=== PATIENT | female | born 1970 | race Caucasian/White ===

== ENCOUNTER 2016-11-02 04:05 | Emergency (ER) | payer OTHER ==
[~2016-11-02] VITALS: Ht 160 cm; Wt 90.0 kg
[~2016-11-02 04:05] MED LIST: ALBU8I INH; CITA10TA4 PO; PRED20 PO; ZOFR4TAB3 PO
[2016-11-02 04:13] VITALS: BP 154/92; PULSE 88; RESP 16; TEMP 98.2; O2SAT 99
[2016-11-02] MEDS ORDERED: KETOROLAC TROMETHAMINE 30 MG/ML (IVP) VIAL IV PUSH ONE (04:45)
[2016-11-02] MEDS ORDERED: PANTOPRAZOLE SODIUM 40 MG VIAL IV PUSH ONE (04:45)
[2016-11-02] MEDS ORDERED: ONDANSETRON HCL 4 MG/2 ML VIAL IV PUSH ONE (04:45)
[2016-11-02] MEDS ORDERED: SODIUM CHLOR 0.9% 1000 ML INJ 1,000 ML IV ONE (04:45)
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
[2016-11-02 05:14] LABS: AUTOMATED NEUTROPHIL # 5.7 TH/MM3 (1.8-7.7); BASOPHIL % 0.4 % (0.0-2.0); EOSINOPHIL % 0.3 % (0.0-4.0); HEMATOCRIT 45.8 % (35.0-46.0); HEMO FLAGS DIFF FINAL; LYMPH % 24.8 % (9.0-44.0); MEAN CORPUSCULAR HEMOGLOBIN 29.8 PG (27.0-34.0); MEAN CORPUSCULAR HGB CONC 33.4 % (32.0-36.0); MONO % 4.7 % (0.0-8.0); NEUT % 69.8 % (16.0-70.0); PLATELET COUNT 227 TH/MM3 (150-450); RED BLOOD COUNT 5.15 MIL/MM3 (4.00-5.30); RED CELL DISTRIBUTION WIDTH 13.2 % (11.6-17.2); WHITE BLOOD COUNT 8.2 TH/MM3 (4.0-11.0)
[2016-11-02 05:30] VITALS: BP 158/99; PULSE 97; RESP 18; O2SAT 95
[2016-11-02 05:55] LABS: ALKALINE PHOSPHATASE 94 U/L (45-117); TOTAL BILIRUBIN ADULT 0.2 MG/DL (0.2-1.0)
[2016-11-02 05:57] LABS: ALT (GPT) 23 U/L (10-53); ANION GAP 10 MEQ/L (5-15); AST (GOT) 24 U/L (15-37); BLOOD UREA NITROGEN 5 MG/DL (7-18); CHLORIDE 107 MEQ/L (98-107); GLOMERULAR FILTRATION RATE 93 ML/MIN (>89); POTASSIUM 3.6 MEQ/L (3.5-5.1); SODIUM (NA) 141 MEQ/L (136-145)
[2016-11-02 06:33] VITALS: BP 172/79; PULSE 87; RESP 18; O2SAT 94
[2016-11-02 08:00] VITALS: BP 155/71; PULSE 85; RESP 17; O2SAT 97
[2016-11-02 10:16] VITALS: BP 138/71
== END 2016-11-02 10:17 | disposition home or self-care (01) ==
LOC: NEPC 04:05
DX: F10.120 Alcohol abuse with intoxication, uncomplicated (principal); J45.909 Unspecified asthma, uncomplicated; R11.2 Nausea with vomiting, unspecified; F17.210 Nicotine dependence, cigarettes, uncomplicated; F12.90 Cannabis use, unspecified, uncomplicated
CPT/HCPCS: 80053; 80307; 84703; 85025; 96361; 96374; 96375; 99284; C9113; J1885; J2405; J7030

== ENCOUNTER 2017-11-14 18:26 | Emergency (ER) | payer OTHER ==
[~2017-11-14] VITALS: Ht 160 cm; Wt 87.0 kg
[2017-11-14 18:38] VITALS: BP 176/92; PULSE 92; RESP 22; O2SAT 99
[2017-11-14] MEDS ORDERED: CITA10TA4 PO (18:43)
[2017-11-14 18:44] VITALS: O2SAT 97
[2017-11-14] MEDS ORDERED: SODIUM CHLORID 0.9% 500 ML INJ 500 ML IV ONE (18:45)
[2017-11-14] MEDS ORDERED: ASPIRIN 81 MG CHEW TAB PO ONE (18:45)
[2017-11-14] MEDS ORDERED: SODIUM CHLORIDE 0.9% FLUSH 10 ML FLUSH IVF PRN (18:45)
[2017-11-14 19:16] LABS: AUTOMATED NEUTROPHIL # 4.2 TH/MM3 (1.8-7.7); BASOPHIL # 0.1 TH/MM3 (0-0.2); BASOPHIL % 0.9 % (0.0-2.0); EOSINOPHIL # 0.1 TH/MM3 (0-0.4); EOSINOPHIL % 1.5 % (0.0-4.0); HEMATOCRIT 44.9 % (35.0-46.0); HEMOGLOBIN 15.5 GM/DL (11.6-15.3); LYMPHOCYTE # 4.2 TH/MM3 (1.0-4.8); MEAN CELL VOLUME 87.3 FL (80.0-100.0); MEAN CORPUSCULAR HEMOGLOBIN 30.1 PG (27.0-34.0); MEAN CORPUSCULAR HGB CONC 34.4 % (32.0-36.0); MEAN PLATELET VOLUME 8.8 FL (7.0-11.0); MONO % 7.4 % (0.0-8.0); MONOCYTE # 0.7 TH/MM3 (0-0.9); NEUT % 45.2 % (16.0-70.0); PLATELET COUNT 256 TH/MM3 (150-450); RED BLOOD COUNT 5.14 MIL/MM3 (4.00-5.30); RED CELL DISTRIBUTION WIDTH 13.9 % (11.6-17.2); WHITE BLOOD COUNT 9.3 TH/MM3 (4.0-11.0)
[2017-11-14 19:24] LABS: INTERNATIONAL NORMALIZED RATIO 1.1 RATIO; PROTHROMBIN TIME - PATIENT 10.8 SEC (9.8-11.6)
[2017-11-14 19:30] LABS: ALT (GPT) 18 U/L (10-53)
--- NOTE | 2017-11-14 19:31 | RADRPT ---
EXAM DATE: 11/14/2017 7:27 PM EDT AGE/SEX: 47 years / Female INDICATIONS: Right sided chest pain for 3 days. CLINICAL DATA: This is the patient's initial encounter. Patient reports that signs and symptoms have been present for 3 days and indicates a pain score of 8/10. MEDICAL/SURGICAL HISTORY: None. Hysterectomy. COMPARISON: No prior [place] exams available for comparison. FINDINGS: PA and lateral views of the chest demonstrate the lungs to be symmetrically aerated. There is some in distinctness of the central bronchopulmonary markings and suggestive of mild peribronchial thickening in both frontal and lateral views. Both costophrenic angles are well delineated and there is no evid ence of pneumothorax or pleural effusion. Both hemidiaphragms well delineated. The heart is normal si ze. CONCLUSION: 1. Nonconsolidative perihilar infiltrates bilaterally. 2. No evidence of pneumothorax or pleural effusion. Electronically signed by: Noble Conklin MD 11/14/2017 7:29 PM EDT
--- NOTE | 2017-11-14 19:32 | PD ---
HPI Chief Complaint: Chest Pain Time Seen by Provider: 19:11 Travel History International Travel<30 days: No Contact w/Intl Traveler<30days: No Traveled to known affect area: No History of Present Illness HPI Patient is a 47-year-old female who at 5:00 today said she vomited developed upper back pain she has upper chest pain in the right side that radiates to the back she put icy hot patch on her back without relief comes to the ER complaining of constant pain radiating from the right scapular area through to the back denies any left-sided squeezing pressure no arm radiation on the left she has no history of hypertension no history of diabetes no never had a stress test pain is constant radiating to the back. PFSH Past Medical History Hx Anticoagulant Therapy: No Asthma: Yes Depression: Yes Cancer: Yes (CERVICAL) Cardiovascular Problems: No Chemotherapy: No Cerebrovascular Accident: No Diabetes: No Diminished Hearing: No Glaucoma: No Hepatitis: No Hiatal Hernia: No Hypertension: No Musculoskeletal: Yes Neurologic: No Respiratory: No Thyroid Disease: No ?: Not Menopausal: No : 4 Para: 2 Miscarriage: 1 : 1 Past Surgical History Hysterectomy: Yes Other Surgery: Yes (EXCISION MASS LEFT FOOT) Social History Alcohol Use: Yes (OCCASION, PREV HEAVY DRINKER) Tobacco Use: Yes ( 1 1/2 TO 2 PPD) Substance Use: Yes (MARIJUANA DAILY) Allergies-Medications (Allergen,Severity, Reaction): Coded Allergies: shellfish derived (Unverified Allergy, Intermediate, 11/14/17) acetaminophen (Unverified Adverse Reaction, Severe, abd pain, 11/14/17) hydrocodone (Unverified Adverse Reaction, Severe, abd pain, 11/14/17) Reported Meds & Prescriptions Reported Meds & Active Scripts Active Reported Citalopram (Citalopram Hydrobromide) 10 Mg Tab 10 Mg PO DAILY Review of Systems Except as stated in HPI: all other systems reviewed are Neg Cardiovascular: Positive: Chest Pain or Discomfort (Upper mid back pain) Physical Exam Narrative GENERAL: No acute distress no respiratory distress and in no apparent pain SKIN: Warm and dry. HEAD: Atraumatic. Normocephalic. EYES: Pupils equal and round. No scleral icterus. No injection or drainage. ENT: No nasal bleeding or discharge. Mucous membranes pink and moist. NECK: Trachea midline. No JVD. CARDIOVASCULAR: Regular rate and rhythm. RESPIRATORY: No accessory muscle use. Clear to auscultation. Breath sounds equal bilaterally. GASTROINTESTINAL: Abdomen soft, non-tender, nondistended. Hepatic and splenic margins not palpable. MUSCULOSKELETAL: Extremities without clubbing, cyanosis, or edema. No obvious deformities. NEUROLOGICAL: Awake and alert. No obvious cranial nerve deficits. Motor grossly within normal limits. Five out of 5 muscle strength in the arms and legs. Normal speech. PSYCHIATRIC: Appropriate mood and affect; insight and judgment normal. Data Data Last Documented VS Vital Signs Date Time Temp Pulse Resp B/P (MAP) Pulse Ox O2 Delivery O2 Flow Rate FiO2 11/14/17 18:44 97 Nasal Cannula 11/14/17 18:44 2.00 11/14/17 18:38 92 22 176/92 (120) Orders Orders Electrocardiogram (11/14/17 18:41) Ckmb (Isoenzyme) Profile (11/14/17 18:41) Complete Blood Count With Diff (11/14/17 18:41) Comprehensive Metabolic Panel (11/14/17 18:41) Magnesium (Mg) (11/14/17 18:41) Prothrombin Time / Inr (Pt) (11/14/17 18:41) Act Partial Throm Time (Ptt) (11/14/17 18:41) Troponin I (11/14/17 18:41) Lipase (11/14/17 18:41) Ecg Monitoring (11/14/17 18:41) Bilateral Bp Monitoring (11/14/17 18:41) Iv Access Insert/Monitor (11/14/17 18:41) Oximetry (11/14/17 18:41) Oxygen Administration (11/14/17 18:41) Aspirin Chew (Aspirin Chew) (11/14/17 18:45) Sodium Chloride 0.9% Flush (Ns Flush) (11/14/17 18:45) Sodium Chlorid 0.9% 500 Ml Inj (Ns 500 M (11/14/17 18:45) Chest, Pa & Lat (11/14/17 18:41) Al-Mag Hy-Si 40-40-4 Mg/Ml Liq (Mag-Al P (11/14/17 19:45) Lidocaine 2% Viscous (Xylocaine 2% Visco (11/14/17 19:45) Famotidine Inj (Pepcid Inj) (11/14/17 19:45) CKMB (11/14/17 18:55) CKMB% (11/14/17 18:55) Ketorolac Inj (Toradol Inj) (11/14/17 21:30) Sodium Chlor 0.9% 1000 Ml Inj (Ns 1000 M (11/14/17 21:30) Azithromycin (Zithromax) (11/14/17 21:30) Ipratropium Neb (Atrovent Neb) (11/14/17 21:30) Labs Laboratory Tests Test 11/14/17 18:55 White Blood Count 9.3 TH/MM3 Red Blood Count 5.14 MIL/MM3 Hemoglobin 15.5 GM/DL Hematocrit 44.9 % Mean Corpuscular Volume 87.3 FL Mean Corpuscular Hemoglobin 30.1 PG Mean Corpuscular Hemoglobin Concent 34.4 % Red Cell Distribution Width 13.9 % Platelet Count 256 TH/MM3 Mean Platelet Volume 8.8 FL Neutrophils (%) (Auto) 45.2 % Lymphocytes (%) (Auto) 45.0 % Monocytes (%) (Auto) 7.4 % Eosinophils (%) (Auto) 1.5 % Basophils (%) (Auto) 0.9 % Neutrophils # (Auto) 4.2 TH/MM3 Lymphocytes # (Auto) 4.2 TH/MM3 Monocytes # (Auto) 0.7 TH/MM3 Eosinophils # (Auto) 0.1 TH/MM3 Basophils # (Auto) 0.1 TH/MM3 CBC Comment DIFF FINAL Differential Comment Prothrombin Time 10.8 SEC Prothromb Time International Ratio 1.1 RATIO Activated Partial Thromboplast Time 32.4 SEC Blood Urea Nitrogen 8 MG/DL Creatinine 0.81 MG/DL Random Glucose 80 MG/DL Total Protein 7.5 GM/DL Albumin 3.8 GM/DL Calcium Level 8.7 MG/DL Magnesium Level 2.2 MG/DL Alkaline Phosphatase 85 U/L Aspartate Amino Transf (AST/SGOT) 17 U/L Alanine Aminotransferase (ALT/SGPT) 18 U/L Total Bilirubin 0.3 MG/DL Sodium Level 140 MEQ/L Potassium Level 3.6 MEQ/L Chloride Level 107 MEQ/L Carbon Dioxide Level 24.9 MEQ/L Anion Gap 8 MEQ/L Estimat Glomerular Filtration Rate 75 ML/MIN Total Creatine Kinase 115 U/L Creatine Kinase MB 1.5 NG/ML Troponin I LESS THAN 0.02 NG/ML Lipase 92 U/L [facility] Medical Decision Making Medical Screen Exam Complete: Yes Emergency Medical Condition: Yes Interpretation(s) EKG is normal sinus rhythm with a rate of 91 Differential Diagnosis Costochondritis versus GERD versus gastritis versus cholecystitis versus pneumonia pneumothorax or intercostal muscle pain or pulled muscle spasm back muscle Narrative Course Pepcid IV Maalox viscous lidocaine given patient felt relief from the GI cocktail viscous lidocaine Maalox feels better and then Chest xray is read as PNA and I treat with azithromycin and Duo neb pt improved safe for outpt follow up Diagnosis Primary Impression: Atypical chest pain Additional Impressions: GERD (gastroesophageal reflux disease) Qualified Codes: K21.9 - Gastro-esophageal reflux disease without esophagitis PNA (pneumonia) Patient Instructions: Community Acquired Pneumonia (ED), Gastritis (ED), General Instructions Scripts Omeprazole (Omeprazole) 40 Mg Cap 40 MG PO DAILY, #14 CAP 0 Refills Prov: Cirilo Sierra MD 11/14/17 Famotidine (Pepcid) 20 Mg Tab 20 MG PO BID, #20 TAB 0 Refills Prov: Cirilo Sierra MD 11/14/17 Ipratropium HFA 12.9 GM Inh (Atrovent HFA 12.9 GM Inh) 17 Mcg/Actuation Aer 2 PUFF INH Q6HR Y for SHORTNESS OF BREATH, #1 INHALER 0 Refills Prov: Cirilo Sierra MD 11/14/17 Azithromycin (Azithromycin) 250 Mg Tab 250 MG PO DIRECTED for Infection, #6 TAB 0 Refills Take 2 tabs (500 mg) on day 1 then 1 tab daily x 4 days. Prov: Cirilo Sierra MD 11/14/17 Ciprofloxacin (Cipro) 500 Mg Tab 500 MG PO BID for Infection, #7 TAB 0 Refills Prov: Cirilo Sierra MD 11/14/17 Disposition: 01 DISCHARGE HOME Condition: Good Cirilo Sierra MD November 14, 2017 19:32
[2017-11-14 19:35] LABS: ALKALINE PHOSPHATASE 85 U/L (45-117); TOTAL BILIRUBIN ADULT 0.3 MG/DL (0.2-1.0); TOTAL PROTEIN 7.5 GM/DL (6.4-8.2); TROPONIN I LESS THAN 0.02 NG/ML (0.02-0.05)
[2017-11-14 19:45] LABS: ALBUMIN 3.8 GM/DL (3.4-5.0); AST (GOT) 17 U/L (15-37); BICARBONATE 24.9 MEQ/L (21.0-32.0); BLOOD UREA NITROGEN 8 MG/DL (7-18); CALCIUM 8.7 MG/DL (8.5-10.1); CHLORIDE 107 MEQ/L (98-107); CREATININE 0.81 MG/DL (0.50-1.00); GLOMERULAR FILTRATION RATE 75 ML/MIN (>89); GLUCOSE,RANDOM 80 MG/DL (74-106); MAGNESIUM 2.2 MG/DL (1.5-2.5); SODIUM (NA) 140 MEQ/L (136-145)
[2017-11-14] MEDS ORDERED: ALUMINUM/MAGNESIUM/SIMETH 30 ML CUP PO ONE (19:45)
[2017-11-14] MEDS ORDERED: LIDOCAINE VISCOUS 2% SOLN 15 ML UDC SWISH-SPIT ONE (19:45)
[2017-11-14] MEDS ORDERED: FAMOTIDINE 20 MG/2 ML VIAL IV PUSH SCH (19:45)
[2017-11-14] MEDS ORDERED: AZITHROMYCIN 250 MG TAB PO ONE (21:30)
[2017-11-14] MEDS ORDERED: SODIUM CHLOR 0.9% 1000 ML INJ 1,000 ML IV ONE (21:30)
[2017-11-14] MEDS ORDERED: KETOROLAC TROMETHAMINE 30 MG/ML (IVP) VIAL IV PUSH ONE (21:30)
[2017-11-14] MEDS ORDERED: RESP: IPRATROPIUM 0.5 MG/2.5 ML NEB NEB ONE (21:30)
[2017-11-14] MEDS ORDERED: AZIT250T3 PO (22:21)
[2017-11-14] MEDS ORDERED: CIPR-9 PO (22:21)
[2017-11-14] MEDS ORDERED: OMEP40CA2 PO (22:22)
[2017-11-14] MEDS ORDERED: IPRA17I INH (22:22)
[2017-11-14] MEDS ORDERED: FAMO1TAB37 PO (22:22)
--- NOTE | 2017-11-15 15:36 | EKG ---
Date Performed: 11/14/2017 Time Performed: 18:36:43 PTAGE: 47 years EKG: Sinus rhythm MODERATE ST DEPRESSION ABNORMAL ECG NO PREVIOUS TRACING DOCTOR: Kvng Cheema Interpretating Date/Time 11/15/2017 15:34:55
== END 2017-11-14 22:51 | disposition home or self-care (01) ==
LOC: NEPE 18:26
DX: R07.89 Other chest pain (principal); K21.9 Gastro-esophageal reflux disease without esophagitis; F12.90 Cannabis use, unspecified, uncomplicated; F17.200 Nicotine dependence, unspecified, uncomplicated; F32.9 Major depressive disorder, single episode, unspecified; Z79.899 Other long term (current) drug therapy
CPT/HCPCS: 71046; 80053; 82550; 82552; 83690; 83735; 84484; 85025; 85610; 85730; 93005; 94664; 96361; 96374; 96375; 99285; J1885; J7030; J7040; J7644

== ENCOUNTER 2017-11-27 22:30 | Inpatient (IN) | payer OTHER ==
[~2017-11-27 22:30] MED LIST changes: -ALBU8I INH; +AMIO200T PO; +ASPI81 PO; +ATOR40TA16 PO; +AZIT250T3 PO; +BRIL90TA PO; +CEFU1TAB18 PO; +CIPR-9 PO; +CIPR500T2 PO; +CITA20TA4 PO; +FAMO1TAB37 PO; +FURO20TA PO; +IPRA17I INH; +LISI-519 PO; +METO25TA3 PO; +OMEP40CA2; +OMEP40CA2 PO; -PRED20 PO; +WALKER WHEELS/F1 MIS; -ZOFR4TAB3 PO
[2017-11-27 22:38] VITALS: BP 101/71; PULSE 107; RESP 20; TEMP 98.3; O2SAT 100
[2017-11-27] MEDS ORDERED: SODIUM CHLORIDE 0.9% FLUSH 10 ML FLUSH IV FLUSH PRN (23:15)
[2017-11-27] MEDS ORDERED: METOPROLOL TARTRATE 5 MG/5 ML VIAL IV PUSH ONE (23:15)
[2017-11-27] MEDS ORDERED: ACETAMINOPHEN 325 MG TAB PO PRN (23:15)
[2017-11-27] MEDS ORDERED: NALOXONE HCL 0.4 MG/ML AMP IV PUSH PRN (23:15)
[2017-11-27] MEDS: MORPHINE SULFATE 4 MG/ML INJ IV PUSH PRN (23:27)
[2017-11-27] MEDS ORDERED: IOHEXOL 350 MG/ML 10 ML VIAL (for RAD DIAG) IVCONTRAST ONE (23:55)
[2017-11-28] VITALS (19 sets, daily range): BP systolic 109–135; BP diastolic 60–74; PULSE 83–104; RESP 18–20; TEMP 98–98.8; O2SAT 97–98
--- NOTE | 2017-11-28 00:16 | RADRPT ---
EXAM DATE: 11/27/2017 11:56 PM EDT AGE/SEX: 47 years / Female INDICATIONS: Shortness of breath. Cough. CLINICAL DATA: This is the patient's initial encounter. Patient reports that signs and symptoms have been present for 1 day and indicates a pain score of 0/10. MEDICAL/SURGICAL HISTORY: Hypertension. Cardiovascular disease. Congestive heart failure. COPD. Cervical cancer. . RADIATION DOSE: 10.37 CTDI (mGy) COMPARISON: No prior exams available for comparison. TECHNIQUE: Volumetric scanning was performed using a multi-row detector CT scanner during bolus infu celine of 65 ml Omnipaque 350 (iohexol) nonionic water-soluble contrast as a single exam dose. The derek a was post processed with a variety of visualization algorithms including full volume maximum intensi ty projection and sliding thin slab reformation. Using automated exposure control and adjustment of the mA and/or kV according to patient size, radiation dose was kept as low as reasonably achievable t o obtain optimal diagnostic quality images. FINDINGS: The contrast bolus is suboptimal. There is poor contrast below the jolie. No central pulmonary emboli identified within the main pulmonary vessels fall within the upper lungs. There is subsegmental airspace in the lungs, right greater than left most characteristic of a mild br onchopneumonia. No significant effusion. CONCLUSION: 1. Suboptimal exam for evaluation of the lower lungs. No definite pulmonary emboli seen in the mid a nd upper portion of the lungs. 2. Subsegmental airspace disease in the lungs, right greater than left. No effusion. Signed report Electronically signed by: Armando Angeles MD 11/28/2017 12:15 AM EDT
[2017-11-28] MEDS: MORPHINE SULFATE 4 MG/ML INJ IV PUSH PRN ×2 (02:01→09:45)
[2017-11-28 02:13] LABS: AUTOMATED NEUTROPHIL # 8.5 TH/MM3 (1.8-7.7); BASOPHIL % 0.3 % (0.0-2.0); EOSINOPHIL # 0.2 TH/MM3 (0-0.4); EOSINOPHIL % 1.2 % (0.0-4.0); HEMATOCRIT 35.3 % (35.0-46.0); HEMOGLOBIN 11.7 GM/DL (11.6-15.3); LYMPH % 21.3 % (9.0-44.0); LYMPHOCYTE # 2.7 TH/MM3 (1.0-4.8); MEAN CELL VOLUME 88.6 FL (80.0-100.0); MEAN CORPUSCULAR HEMOGLOBIN 29.5 PG (27.0-34.0); MEAN CORPUSCULAR HGB CONC 33.2 % (32.0-36.0); MEAN PLATELET VOLUME 8.6 FL (7.0-11.0); MONO % 9.3 % (0.0-8.0); MONOCYTE # 1.2 TH/MM3 (0-0.9); NEUT % 67.9 % (16.0-70.0); PLATELET COUNT 270 TH/MM3 (150-450); RED BLOOD COUNT 3.98 MIL/MM3 (4.00-5.30); RED CELL DISTRIBUTION WIDTH 13.8 % (11.6-17.2); WHITE BLOOD COUNT 12.5 TH/MM3 (4.0-11.0)
[2017-11-28 02:35] LABS: BICARBONATE 20.8 MEQ/L (21.0-32.0); CALCIUM 8.4 MG/DL (8.5-10.1); CREATININE 0.79 MG/DL (0.50-1.00)
[2017-11-28 02:38] LABS: TROPONIN I 0.14 NG/ML (0.02-0.05)
[2017-11-28] MEDS: RESP: ALBUTEROL 2.5 MG/IPRATROPIUM 0.5 MG NEB (PRN) NEB ×3 (05:09→12:22)
[2017-11-28] MEDS: METOPROLOL TARTRATE 25 MG TAB PO SCH ×2 (06:00→14:38)
[2017-11-28] MEDS ORDERED: ASPIRIN 325 MG TAB PO SCH (09:00)
[2017-11-28] MEDS ORDERED: ENOXAPARIN SODIUM 40 MG/0.4 ML SYRINGE SQ SCH (09:00)
[2017-11-28] MEDS ORDERED: AMIODARONE 200 MG TAB PO SCH (09:00)
[2017-11-28] MEDS ORDERED: LEVOFLOXACIN 500 MG TAB PO SCH (09:00)
[2017-11-28] MEDS ORDERED: PANTOPRAZOLE SOD 40 MG DELAYED RELEASE TAB PO SCH (09:00)
[2017-11-28] MEDS ORDERED: CITALOPRAM HYDROBROMIDE 20 MG TAB PO SCH (09:00)
[2017-11-28] MEDS ORDERED: SODIUM CHLORIDE 0.9% FLUSH 10 ML FLUSH IV FLUSH SCH (09:00)
[2017-11-28] MEDS ORDERED: LISINOPRIL 5 MG TAB PO SCH (09:00)
[2017-11-28] MEDS ORDERED: FUROSEMIDE 20 MG TAB PO SCH (09:00)
[2017-11-28 09:20] LABS: TROPONIN I 0.11 NG/ML (0.02-0.05)
--- NOTE | 2017-11-28 11:55 | HHI.DS ---
Discharge Summary Admission Date Nov 27, 2017 at 22:35 Discharge Date: Nov 28, 2017 Admitting Diagnosis chest pain Brief History This is a 47yF with recent history of NSTEMI with recent LAD stent placed. her hospital course was complicated by cardiogenic shock requiring pharmacologic and mechanical support. she clinically improved and was discharged to inpatient rehab. she represented as a rapid response for substernal chest pain. CBC/BMP: 11/28/17 0205 11/28/17 0205 Significant Findings Laboratory Tests Test 11/28/17 02:05 11/28/17 07:59 White Blood Count 12.5 TH/MM3 (4.0-11.0) Red Blood Count 3.98 MIL/MM3 (4.00-5.30) Monocytes (%) (Auto) 9.3 % (0.0-8.0) Neutrophils # (Auto) 8.5 TH/MM3 (1.8-7.7) Monocytes # (Auto) 1.2 TH/MM3 (0-0.9) Random Glucose 114 MG/DL (74-106) Calcium Level 8.4 MG/DL (8.5-10.1) Chloride Level 108 MEQ/L (98-107) Carbon Dioxide Level 20.8 MEQ/L (21.0-32.0) Estimat Glomerular Filtration Rate 78 ML/MIN (>89) Total Creatine Kinase 438 U/L (26-192) 416 U/L (26-192) Creatine Kinase MB 5.2 NG/ML (0.5-3.6) 5.4 NG/ML (0.5-3.6) Troponin I 0.14 NG/ML (0.02-0.05) 0.11 NG/ML (0.02-0.05) PE at Discharge gen: middle-aged woman who is currently working with physical therapy, walking with a walker. no acute distress. heent: nc. at. perrl. mmm. neck: no jvd. trachea midline. chest: nc o2. unlabored. equal chest rise. cv: normal rate, regular rhythm. sinus. abd: soft, nontender, nondistended. no guarding. extr: no peripheral edema. distal pulses 2+. neuro: RASS 0. GCS 15. CAM -. follows commands. no focal deficits. Hospital Course Her chest pain was evaluated with CT pulmonary angiogram, serial troponins, and EKG: CT PA was negative for PE and demonstrate resolving basilar consolidation consistent with her known recent diagnosis of aspiration pneumonia. her troponins are downtrending and consistent with resolving myocardial ischemia from her recent prior [place]. Her EKG demonstrates new q waves in the anterolateral precordial leads, again suggestive of evolving prior ischemia to the LAD. She had 4 episodes of cardiac arrest during her prior admission, the last of which lasted 18 minutes. Her pain is most consistent with musculoskeletal chest pain from recent chest compressions. I have discussed the case with Dr. Washington Mcgrath who was her vice chair from recent admission and he and I both agree she is stable to transfer back to [facility]. Pt Condition on Discharge: Stable Discharge Disposition: Rehab Inpatient Discharge Instructions DIET: Follow Instructions for: Heart Healthy Diet Activities you can perform: Regular-No Restrictions Efraín Sommer MD Nov 28, 2017 11:54
[2017-11-28] MEDS ORDERED: ATORVASTATIN 40 MG TAB PO SCH (21:00)
[2017-12-03] MEDS ORDERED: TRANSFER BENCH1 MIS (14:25)
[2017-12-04] MEDS ORDERED: ECASA81 PO (12:21)
[2017-12-04] MEDS ORDERED: LISI-519 PO (12:21)
[2017-12-04] MEDS ORDERED: BRIL90TA PO (12:21)
[2017-12-04] MEDS ORDERED: AMIO200T PO (12:21)
[2017-12-04] MEDS ORDERED: FURO20TA PO (12:21)
[2017-12-04] MEDS ORDERED: METO25TA3 PO (12:21)
[2017-12-04] MEDS ORDERED: FAMO1TAB37 PO (12:21)
[2017-12-04] MEDS ORDERED: IPRA17I INH (12:21)
[2017-12-04] MEDS ORDERED: BACL10TA PO (12:21)
[2017-12-04] MEDS ORDERED: ATOR40TA16 PO (12:21)
[2017-12-04] MEDS ORDERED: CELE20TA PO (12:21)
[2017-12-04] MEDS ORDERED: CEFU1TAB18 PO (12:21)
[2017-12-04] MEDS ORDERED: MONT10TA4 PO (12:21)
[2017-12-04] MEDS ORDERED: FLUT50SP EACH NARE (12:21)
[2017-12-05] MEDS ORDERED: ACET325T15 PO (09:39)
[2017-12-05] MEDS ORDERED: HYDR-3516 PO (09:39)
== END 2017-11-28 15:15 | DRG 313 ==
LOC: HCIS 22:35
PROVIDERS: ADMIT Internal Medicine Critical Care Medicine; ATTEND Internal Medicine Critical Care Medicine
DX: R07.89 Other chest pain (principal); I25.2 Old myocardial infarction; Z95.5 Presence of coronary angioplasty implant and graft
CPT/HCPCS: 71275; 80048; 82550; 82552; 84484; 85025; 94640; 94664; J1650; J2270; Q9967

== ENCOUNTER 2017-12-13 11:38 | Emergency (ER) | payer OTHER ==
[~2017-12-13] VITALS: Ht 160 cm; Wt 68.0 kg
[~2017-12-13 11:38] MED LIST changes: +ACET325T15 PO; -ASPI81 PO; -AZIT250T3 PO; +BACL10TA PO; +CELE20TA PO; -CIPR-9 PO; -CIPR500T2 PO; -CITA10TA4 PO; -CITA20TA4 PO; +ECASA81 PO; +FLUT50SP EACH NARE; +HYDR-3516 PO; -IPRA17I INH; +MONT10TA4 PO; -OMEP40CA2; -OMEP40CA2 PO; +TRANSFER BENCH1 MIS
[2017-12-13 12:00] VITALS: BP_SYST 81; BP_SYST 91; BP_DIAS 52; BP_DIAS 53; PULSE 67; RESP 20; TEMP 97.8; O2SAT 99
[2017-12-13] MEDS ORDERED: SODIUM CHLORIDE 0.9% FLUSH 10 ML FLUSH IVF PRN (12:30)
[2017-12-13] MEDS ORDERED: SODIUM CHLORID 0.9% 500 ML INJ 500 ML IV ONE (12:30)
[2017-12-13 12:31] VITALS: BP 108/58; PULSE 62; RESP 18; TEMP 98.2
--- NOTE | 2017-12-13 12:39 | RADRPT ---
EXAM DATE: 12/13/2017 12:35 PM EDT AGE/SEX: 47 years / Female INDICATIONS: Chest pain. CLINICAL DATA: This is the patient's initial encounter. Patient reports that signs and symptoms have been present for 1 day and indicates a pain score of 5/10. MEDICAL/SURGICAL HISTORY: . Hypertension. Cardiovascular disease. Congestive heart failure. [employer] D. Cervical cancer. Hysterectomy. Heart stents. COMPARISON: No prior exams available for comparison. FINDINGS: A single AP view of the chest demonstrates a linear density right lower lobe. Left lung clear. Heart normal in size. The cardiomediastinal contours are unremarkable. Osseous structures are intact. CONCLUSION: Right basilar subsegmental atelectasis. Electronically signed by: Samuel Pineda MD 12/13/2017 12:37 PM EDT
[2017-12-13 12:43] VITALS: BP 107/56; PULSE 58
[2017-12-13 13:04] LABS: BASOPHIL # 0.1 TH/MM3 (0-0.2); EOSINOPHIL # 0.1 TH/MM3 (0-0.4); EOSINOPHIL % 1.6 % (0.0-4.0); HEMATOCRIT 40.2 % (35.0-46.0); HEMOGLOBIN 13.4 GM/DL (11.6-15.3); LYMPH % 28.6 % (9.0-44.0); MEAN CELL VOLUME 89.3 FL (80.0-100.0); MEAN CORPUSCULAR HEMOGLOBIN 29.8 PG (27.0-34.0); MEAN CORPUSCULAR HGB CONC 33.3 % (32.0-36.0); MEAN PLATELET VOLUME 8.7 FL (7.0-11.0); MONO % 10.8 % (0.0-8.0); MONOCYTE # 0.7 TH/MM3 (0-0.9); PLATELET COUNT 309 TH/MM3 (150-450); WHITE BLOOD COUNT 6.9 TH/MM3 (4.0-11.0)
[2017-12-13 13:11] LABS: INTERNATIONAL NORMALIZED RATIO 1.2 RATIO; PROTHROMBIN TIME - PATIENT 11.8 SEC (9.8-11.6)
[2017-12-13 13:22] LABS: ALBUMIN 3.7 GM/DL (3.4-5.0); ALT (GPT) 246 U/L (10-53); AST (GOT) 112 U/L (15-37); BICARBONATE 25.5 MEQ/L (21.0-32.0); BLOOD UREA NITROGEN 11 MG/DL (7-18); CALCIUM 8.8 MG/DL (8.5-10.1); CHLORIDE 104 MEQ/L (98-107); CREATININE 0.88 MG/DL (0.50-1.00); GLOMERULAR FILTRATION RATE 69 ML/MIN (>89); GLUCOSE,RANDOM 78 MG/DL (74-106); SODIUM (NA) 137 MEQ/L (136-145)
[2017-12-13 13:26] LABS: ALKALINE PHOSPHATASE 148 U/L (45-117); TOTAL BILIRUBIN ADULT 0.4 MG/DL (0.2-1.0); TOTAL PROTEIN 7.5 GM/DL (6.4-8.2); TROPONIN I LESS THAN 0.02 NG/ML (0.02-0.05)
--- NOTE | 2017-12-13 13:52 | PD ---
HPI Chief Complaint: Medication Refill Request Time Seen by Provider: 12:13 Travel History International Travel<30 days: No Contact w/Intl Traveler<30days: No Traveled to known affect area: No History of Present Illness HPI Patient is a 47 year old female who comes in for a medication refill. She says she is running out of her Amiodarone. She says she has been feeling well, but was worried because she was told not to miss any doses. She denies chest pain or SOB. She denies dizziness, headache, palpitations. She was found to be hypotensive in triage, but says she is feeling well. She was here in October after a cardiac arrest. She says she had some chest pain yesterday, but it is pain she has had to her ribs since having chest compressions performed. Currently she is completely asymptomatic. Severity is mild. PFSH Past Medical History Hx Anticoagulant Therapy: No Asthma: Yes Autoimmune Disease: No Anxiety: Yes Depression: Yes Cancer: Yes (CERVICAL) Cardiac Catheterization: Yes Cardiovascular Problems: No High Cholesterol: No Chemotherapy: No Chest Pain: Yes Congestive Heart Failure: Yes (Newly diagnosed) COPD: Yes Cerebrovascular Accident: No Diabetes: No Diminished Hearing: No Endocrine: No Glaucoma: No Genitourinary: No Headaches: Yes Hepatitis: No Hiatal Hernia: No Hypertension: No Immune Disorder: No Musculoskeletal: Yes Neurologic: No Psychiatric: Yes Reproductive: Yes (Cervical cancer) Respiratory: Yes Radiation Therapy: No Seizures: No Sleep Apnea: No Thyroid Disease: No ?: Not Menopausal: No : 4 Para: 2 Miscarriage: 1 : 1 Past Surgical History Abdominal Surgery: No AICD: No Body Medical Devices: cardiac stent Ear Surgery: No Endocrine Surgery: No Eye Surgery: No Genitourinary Surgery: No Gynecologic Surgery: Yes (Hysterectomy) Hysterectomy: Yes Insulin Pump: No Joint Replacement: No Oral Surgery: No Pacemaker: No Thoracic Surgery: No Other Surgery: Yes (EXCISION MASS LEFT FOOT) Social History Alcohol Use: Yes Tobacco Use: No (quit ) Substance Use: No (hx of MARIJUANA DAILY) Allergies-Medications (Allergen,Severity, Reaction): Coded Allergies: shellfish derived (Unverified Allergy, Intermediate, 12/13/17) adhesive (Verified Allergy, Mild, Irritation, 12/13/17) acetaminophen (Unverified Adverse Reaction, Severe, abd pain, 12/13/17) hydrocodone (Unverified Adverse Reaction, Severe, abd pain, 12/13/17) Reported Meds & Prescriptions Reported Meds & Active Scripts Active Hydrocodone-Acetamin 5-325 mg (Hydrocodone/Acetaminophen) 5 Mg-325 Mg Tablet 1 Tab PO Q12HR PRN Eq Acetaminophen (Acetaminophen) 325 Mg Tab 650 Mg PO Q8HR PRN Fluticasone Nasal [place] 50 Mcg/Act Naspr 2 [place] EACH NARE DAILY 50 mcg/spray Montelukast (Montelukast Sodium) 10 Mg Tab 10 Mg PO HS Furosemide 20 Mg Tab 20 Mg PO BID@,18 Celexa (Citalopram Hydrobromide) 20 Mg Tab 20 Mg PO DAILY Aspirin DR (Aspirin) 81 Mg Tabdr 81 Mg PO DAILY Lisinopril 5 Mg Tab 5 Mg PO Q12HR Metoprolol Tartrate 25 Mg Tab 12.5 Mg PO Q8HR Atorvastatin (Atorvastatin Calcium) 40 Mg Tab 40 Mg PO HS Amiodarone (Amiodarone HCl) 200 Mg Tab 200 Mg PO DAILY Brilinta (Ticagrelor) 90 Mg Tab 90 Mg PO BID Baclofen 10 Mg Tab 10 Mg PO Q12HR Ceftin (Cefuroxime Axetil) 250 Mg Tab 250 Mg PO Q12HR Pepcid (Famotidine) 20 Mg Tab 20 Mg PO BID Transfer Bench (Device) 1 Mis Mis Ea .XX DIRECTED Walker with Front Wheels (Device) 1 Mis Mis Ea .XX DIRECTED Review of Systems Except as stated in HPI: all other systems reviewed are Neg General / Constitutional: No: Fever, Chills HENT: No: Headaches, Lightheadedness Respiratory: No: Cough, Shortness of Breath Gastrointestinal: No: Nausea, Vomiting Musculoskeletal: No: Edema, Pain Skin: No Rash, No Change in Pigmentation Neurologic: No: Weakness, Dizziness Physical Exam Narrative GENERAL: Awake and alert, in no acute distress. SKIN: Focused skin assessment warm/dry. No wounds or signs of infection. HEAD: Atraumatic. Normocephalic. EYES: Pupils equal and round. No scleral icterus. EOMI. ENT: Mucous membranes pink and moist. NECK: Trachea midline. No JVD. CARDIOVASCULAR: Regular rate and rhythm. No murmur appreciated. RESPIRATORY: No accessory muscle use. Clear to auscultation. Breath sounds equal bilaterally. GASTROINTESTINAL: Abdomen soft, non-tender, nondistended. MUSCULOSKELETAL: No obvious deformities. No clubbing. No cyanosis. No edema. NEUROLOGICAL: Awake and alert. No obvious cranial nerve deficits. Motor grossly within normal limits. Normal speech. PSYCHIATRIC: Appropriate mood and affect; insight and judgment normal. Data Data Last Documented VS Vital Signs Date Time Temp Pulse Resp B/P (MAP) Pulse Ox O2 Delivery O2 Flow Rate FiO2 12/13/17 12:43 58 107/56 (73) 12/13/17 12:31 98.2 18 Room Air 12/13/17 12:00 99 Orders Orders Electrocardiogram (12/13/17 12:18) Complete Blood Count With Diff (12/13/17 12:18) Comprehensive Metabolic Panel (12/13/17 12:18) Prothrombin Time / Inr (Pt) (12/13/17 12:18) Act Partial Throm Time (Ptt) (12/13/17 12:18) Troponin I (12/13/17 12:18) Chest, Single Ap (12/13/17 12:18) Ecg Monitoring (12/13/17 12:18) Bilateral Bp Monitoring (12/13/17 12:18) Iv Access Insert/Monitor (12/13/17 12:18) Oximetry (12/13/17 12:18) Sodium Chloride 0.9% Flush (Ns Flush) (12/13/17 12:30) Sodium Chlorid 0.9% 500 Ml Inj (Ns 500 M (12/13/17 12:30) Ed Discharge Order (12/13/17 15:08) Labs Laboratory Tests Test 12/13/17 12:42 White Blood Count 6.9 TH/MM3 Red Blood Count 4.50 MIL/MM3 Hemoglobin 13.4 GM/DL Hematocrit 40.2 % Mean Corpuscular Volume 89.3 FL Mean Corpuscular Hemoglobin 29.8 PG Mean Corpuscular Hemoglobin Concent 33.3 % Red Cell Distribution Width 14.0 % Platelet Count 309 TH/MM3 Mean Platelet Volume 8.7 FL Neutrophils (%) (Auto) 58.0 % Lymphocytes (%) (Auto) 28.6 % Monocytes (%) (Auto) 10.8 % Eosinophils (%) (Auto) 1.6 % Basophils (%) (Auto) 1.0 % Neutrophils # (Auto) 4.0 TH/MM3 Lymphocytes # (Auto) 2.0 TH/MM3 Monocytes # (Auto) 0.7 TH/MM3 Eosinophils # (Auto) 0.1 TH/MM3 Basophils # (Auto) 0.1 TH/MM3 CBC Comment DIFF FINAL Differential Comment Prothrombin Time 11.8 SEC Prothromb Time International Ratio 1.2 RATIO Activated Partial Thromboplast Time 32.6 SEC Blood Urea Nitrogen 11 MG/DL Creatinine 0.88 MG/DL Random Glucose 78 MG/DL Total Protein 7.5 GM/DL Albumin 3.7 GM/DL Calcium Level 8.8 MG/DL Alkaline Phosphatase 148 U/L Aspartate Amino Transf (AST/SGOT) 112 U/L Alanine Aminotransferase (ALT/SGPT) 246 U/L Total Bilirubin 0.4 MG/DL Sodium Level 137 MEQ/L Potassium Level 4.2 MEQ/L Chloride Level 104 MEQ/L Carbon Dioxide Level 25.5 MEQ/L Anion Gap 8 MEQ/L Estimat Glomerular Filtration Rate 69 ML/MIN Troponin I LESS THAN 0.02 NG/ML MDM Medical Decision Making Medical Screen Exam Complete: Yes Emergency Medical Condition: Yes Medical Record Reviewed: Yes Interpretation(s) ECG shows NSR at a rate of 59, no ST elevation or depression Differential Diagnosis med refill vs dehydration vs electrolyte abnormalities Narrative Course Patient is a 47 year old female who comes in for a refill of her medication. She has no complaints at this time. In triage, her BP was low, however, in the room, it has come up. Currently her BP is 107/56, which is similar to what it has been in past visits. Based on her recent history, labs checked. Labs show elevated AST and ALT, which have been elevated int he past. Patient advised of these results and told to follow up with a PCP regarding this. Advised to avoid Tylenol and alcohol. Last 24 hours Impressions Chest X-Ray 12/13/17 1218 Signed Impressions: CONCLUSION: Right basilar subsegmental atelectasis. 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 She was supposed to be on a taper: Per discharge summary by Dr. Siddiqui:Cardiology consult: Dr. Mcgrath amiodarone 400mg po BID: will order taper- 400 BID x 7 days, 200 BID x 7 days, 200 daily x 7 days, then off. no evidence to suggest she will need long-term amiodarone therapy. I attempted to contact Dr. Mcgrath to make sure she could stop the Amiodarone, but was unable to speak with him. I spoke with Dr. Colvin who does not know the patient and suggested she go to Dr. Mcgrath's office. Patient offered a prescription for a few more days until she could see Dr. Mcgrath, but she says she is comfortable stopping the medication and following up at the office. She is advised to return at any time for any worsening symptoms. Diagnosis Primary Impression: Medication refill Additional Impression: Hypotension Qualified Codes: I95.9 - Hypotension, unspecified Patient Instructions: General Instructions, Hypotension (ED) Additional Instructions: Follow-up with your doctors. Return to the ED as needed for any worsening symptoms. Disposition: 01 DISCHARGE HOME Condition: Stable Mariama Rodgers MD Dec 13, 2017 13:52
--- NOTE | 2017-12-14 14:40 | EKG ---
Date Performed: 12/13/2017 Time Performed: 12:54:41 PTAGE: 47 years EKG: SINUS BRADYCARDIA LOW QRS VOLTAGE IN PRECORDIAL LEADS NONSPECIFIC T-WAVE ABNORMALITY BORDER LINE ECG Minor variation in the ST-T abnormalities compared to the prior tracing. PREVIOUS TRACING : 11/14/2017 18.36 DOCTOR: [place] Mcgrath Interpretating Date/Time 12/14/2017 14:40:02
== END 2017-12-13 15:15 | disposition home or self-care (01) ==
LOC: NEPD 11:38
DX: I95.9 Hypotension, unspecified (principal); R07.9 Chest pain, unspecified; J44.9 Chronic obstructive pulmonary disease, unspecified; Z76.0 Encounter for issue of repeat prescription; Z87.891 Personal history of nicotine dependence
CPT/HCPCS: 71045; 80053; 84484; 85025; 85610; 85730; 93005; 99285; J7040